=== PATIENT | female | born 1960 | race African-American/Black ===

== ENCOUNTER → 2017-08-11 | Outpatient (CLI) | payer OTHER | END | disposition home or self-care (01) | LOC: RAD 09:02 | DX: M51.36 Other intervertebral disc degeneration, lumbar region (principal); M19.011 Primary osteoarthritis, right shoulder | CPT/HCPCS: 72100; 73030 ==

== ENCOUNTER 2018-05-24 02:43 | Emergency (ER) | payer OTHER ==
[~2018-05-24] VITALS: Ht 165.1 cm; Wt 129.3 kg
--- NOTE | 2018-05-24 04:25 | RAD ---
AP portable chest radiograph 05/24/2018 Clinical History: Shortness of breath. Lung cancer. Two AP erect portable digital radiographs of the chest were obtained. No previous studies are available for comparison. The cardiac silhouette is mild to moderately enlarged. There is a moderate sized right pleural effusion. The thoracic aorta is mildly tortuous. Right lower lobe atelectasis and/or infiltrate is seen. The left lung is clear. Degenerative changes are seen involving the thoracic spine and both shoulders. IMPRESSION: Mild to moderate cardiomegaly. Moderate sized right pleural effusion. Right lower lobe atelectasis and/or infiltrate is seen. Electronically signed by: Zhen Comer MD (05/24/2018 4:21 AM) [facility]
[2018-05-24] MEDS ORDERED: OXYC1TAB15 PO (04:41)
--- NOTE | 2018-05-24 04:49 | PHYS DOC ---
Past Medical History Past Medical History: Arthritis, Cancer, Diabetes-Type II, Hypertension, Other Additional Past Medical Histor: STAGE 4 LUNG CA Past Surgical History: Cholecystectomy, Tubal ligation, Other Alcohol Use: None Drug Use: None Adult General Chief Complaint Chief Complaint: ABDOMINAL PAIN HPI HPI Patient is a 57 year old female who presents requesting help with drainage of ascites. The patient is known to have lung cancer. She subsequently has continuous accumulation of ascites in her abdomen. She has a drain in place over the right portion of her upper abdomen. The patient states she has to drain the fluid many times weekly. Ordinarily, she is able to drain off anywhere from 250-400 mL of fluid. She does this at home and her family helps her. Patient states over the last couple of days, they have been unable to drain a normal amount of fluid from her abdomen. She states only 40 mL over the last 2 days. It is uncertain if her tube is clogged or if this is an equipment problem or if it is an education problem. Patient states when she needs to have fluid drained she does have dyspnea worse than baseline. She uses oxygen at home and has dyspnea is because of her lung cancer. Today, she does not complain of any new or acute problem. She simply states she is having normal symptoms when she has fluid acute bleeding in her abdomen. No chest pain. No dizziness or lightheadedness. The patient does have chronic pain for which she uses about 4 Percocet daily. Review of Systems Review of Systems Constitutional: Denies fever Eyes: Denies change in visual acuity HENT: Denies nasal congestion Respiratory: Denies cough or dyspnea worse that baseline Cardiovascular: No additional information not addressed in HPI GI: Denies n/v : Denies dysuria or hematuria Musculoskeletal: Denies back pain Integument: Denies rash or skin lesion Neurologic: Denies neuro complaints Endocrine: Denies polyuria or polydipsia All other systems were reviewed and found to be within normal limits, except as documented in this note. Current Medications Current Medications Current Medications Medications (Trade) Dose Ordered Sig/Juan Pablo Start Time Stop Time Status Last Admin Dose Admin Oxycodone/ Acetaminophen (Percocet 5/325) 2 tab 1X ONCE 05/24/18 05:00 05/24/18 05:01 05/24/18 04:48 2 TAB Allergies Allergies Allergies Coded Allergies Type Severity Reaction Last Updated Verified Penicillins Allergy Intermediate 05/24/18 Yes codeine Allergy Intermediate 05/24/18 Yes Physical Exam Physical Exam Constitutional: Well developed, well nourished, no acute distress, non-toxic appearance HENT: Normocephalic, atraumatic, bilateral external ears normal, oropharynx moist Eyes: PERRLA, EOMI, conjunctiva normal Neck: Normal range of motion, no tenderness Cardiovascular:Heart rate regular rhythm, no murmur Lungs & Thorax: Bilateral breath sounds clear to auscultation Abdomen: Bowel sounds normal, soft, no, no obvious edema of abdominal wall Skin: Warm, dry, no erythema, no rash Extremities: No tenderness, no cyanosis, no clubbing, ROM intact, no edema Neurologic: Alert and oriented X 3 Psychologic: Affect normal Current Patient Data Vital Signs Vital Signs Date Time Temp Pulse Resp B/P (MAP) Pulse Ox O2 Delivery O2 Flow Rate FiO2 05/24/18 04:48 20 96 Nasal Cannula 05/24/18 03:00 98.4 105 134/73 (93) 2.0 98.4 EKG EKG [] Radiology/Procedures Radiology/Procedures No previous studies are available for comparison. The cardiac silhouette is mild to moderately enlarged. There is a moderate sized right pleural effusion. The thoracic aorta is mildly tortuous. Right lower lobe atelectasis and/or infiltrate is seen. The left lung is clear. Degenerative changes are seen involving the thoracic spine and both shoulders. IMPRESSION: Mild to moderate cardiomegaly. Moderate sized right pleural effusion. Right lower lobe atelectasis and/or infiltrate is seen. Course & Med Decision Making Course & Med Decision Making Pertinent Labs and Imaging studies reviewed. (See chart for details) Patient was evaluated in the ER for a technical issue regarding drainage from of fluid. She is normally followed at a different hospital so there are few records available for review. In the ER today, we were able to drain over 250 Leahy of fluid from her drain. Following this, the patient felt much improved. She feels at baseline and prefers discharge home over admission. She did not have chest pain or any other acute complaints. She simply had difficulty with the normal procedure she would be doing at home. Patient did have a pleural effusion on the right on her x-ray but patient states she always has this finding and states it is sometimes drained as well. Patient is discharged home today. She is calling her son for a ride home. She is advised to follow-up with her primary care team at [facility] or return to this ER or in the ER if she develops any new or worsening symptoms. Julien Disclaimer Julien Disclaimer This electronic medical record was generated, in whole or in part, using a voice recognition dictation system. Departure Departure Impression: Primary Impression: Ascites Additional Impression: Lung cancer Disposition: HOME, SELF-CARE Condition: GOOD Patient Instructions: Ascites, Ascites Drainage Catheter Home Guide Scripts Oxycodone/Apap 5-325 (PERCOCET 5-325 MG TABLET) 1 Each Tablet 1-2 EACH PO PRN TID PRN for SEVERE PAIN, #25 TAB pain Prov: NIKKI WEBER DO 05/24/18 Problem Qualifiers NIKKI WEBER DO May 24, 2018 04:49
[2018-05-24 05:00] VITALS: BP 117/66
[2018-05-24] MEDS ORDERED: oxyCODONE/APAP 5/325 1 TAB TABLET PO ONE (05:00)
== END 2018-05-24 05:08 | disposition home or self-care (01) ==
LOC: ER 02:43
DX: C34.90 Malignant neoplasm of unspecified part of unspecified bronchus or lung (principal); R18.8 Other ascites; G89.29 Other chronic pain; M19.90 Unspecified osteoarthritis, unspecified site; E11.9 Type 2 diabetes mellitus without complications; I10 Essential (primary) hypertension; Z90.49 Acquired absence of other specified parts of digestive tract; Z98.51 Tubal ligation status; Z88.0 Allergy status to penicillin; Z88.5 Allergy status to narcotic agent
CPT/HCPCS: 71045; 99283; 99284-25